=== PATIENT | female | born 1985 | race African-American/Black ===

== ENCOUNTER 2016-12-20 01:33 | Emergency (ER) | payer OTHER ==
[~2016-12-20] VITALS: Ht 162.6 cm; Wt 127.0 kg
--- NOTE | ~2016-12-20 | EKG ---
[place] [address] [facility] [facility] [place] [address] ELECTROCARDIOGRAM REPORT Name: JOSLYN HUTTON Room #: [facility] JAK Grider#: [id number] Admission: 12/20/16 Attend Phys: Discharge: 12/20/16 Date of : 89 Report #: [id number] THIS REPORT FOR: //name// [facility] ED Test Date: 2016-12-20 Test Time: 01:48:24 Pat Name: JOSLYN HUTTON Department: Room: Gender: F [employer]: CWEIESPERANZA : 1985 Requested By: Jake Hernandez Order Number: [id number] MD: Alton Browning Measurements Intervals [place] Rate: 88 P: 50 NC: 171 QRS: 39 QRSD: 93 T: 18 QT: 372 QTc: 450 Interpretive Statements Sinus rhythm No significant abnormality No previous ECG available for comparison Electronically Signed On 12-20-2016 8:03:47 CDT by Alton Browning [email or web address] <ELECTRONICALLY SIGNED> By: Alton Browning MD, [facility] 12/20/16 0803 [id number] Alton Browning MD, FACC /EPI
[2016-12-20] MEDS ORDERED: ACCUNEB SO1.25 MG/1 INH (01:49)
[2016-12-20] MEDS ORDERED: SYMBICORT160 MCG/4. INH (01:50)
[2016-12-20] MEDS ORDERED: ZERIT PO (01:50)
[2016-12-20] MEDS ORDERED: VENTOLIN HFA 1818 GM INH (02:14)
== END 2016-12-20 02:20 | disposition home or self-care (01) ==
LOC: ER 01:33
DX: J45.901 Unspecified asthma with (acute) exacerbation (principal); Z88.6 Allergy status to analgesic agent; Z88.5 Allergy status to narcotic agent; Z91.013 Allergy to seafood